=== PATIENT | female | born 1990 | race Caucasian/White ===

== ENCOUNTER 2023-10-30 00:26 | Emergency (ER) | payer SELFPAY ==
[2023-10-30] MEDS: Lidocaine 2% with EPINEPHrine 1:200,000 20 ML SDV INJECT ONE (00:43)
[2023-10-30] MEDS: Lidocaine 1% with EPINEPHrine 1:100,000 50 ML MDV INJECT STA (00:43)
[2023-10-30] MEDS: Lidocaine 1% with EPINEPHrine 1:200,000 30 ML SDV INJECT ONE (00:43)
[2023-10-30] MEDS: Ibuprofen 600 MG Tab PO ONE (01:09)
[2023-10-30] MEDS: Acetaminophen 500 MG Tab PO ONE (01:09)
[2023-10-30] MEDS: Ondansetron 4 MG Tab.DIS PO ONE (01:09)
[2023-10-30] MEDS: Doxycycline 100 MG Cap PO ONE (01:10)
== END 2023-10-30 01:19 | disposition home or self-care (01) ==
LOC: MW.ED 00:26
DX: L02.213 Cutaneous abscess of chest wall (principal); Z79.899 Other long term (current) drug therapy; Z90.49 Acquired absence of other specified parts of digestive tract; Z75.8 Other problems related to medical facilities and other health care
CPT/HCPCS: 10060; 82947; 99283; A9270; J3490

== ENCOUNTER 2024-03-20 18:38 | Emergency (ER) | payer SELFPAY ==
[2024-03-20 19:55] LABS: BASOPHILS ABSOLUTE AUTO 0.04 K/uL (0.00-0.20); BASOPHILS PERCENT AUTO 0.3 % (0.0-1.0); EOSINOPHILS ABSOLUTE AUTO 0.02 K/uL (0.00-0.45); EOSINOPHILS PERCENT AUTO 0.2 % (0.0-6.0); HEMATOCRIT 42.2 % (37.0-47.0); HEMOGLOBIN 13.7 g/dL (12.0-16.0); IMMATURE GRAN PERCENT AUTO 0.9 % (0.0-0.4); LYMPHOCYTES ABSOLUTE AUTO 1.78 K/uL (1.00-4.80); LYMPHOCYTES PERCENT AUTO 15.4 % (24.0-44.0); MEAN CORPUSCULAR HEMOGLOBIN 27.7 pg (28.0-32.0); MEAN CORPUSCULAR HGB CONC 32.5 g/dL (32.0-36.0); MEAN CORPUSCULAR VOLUME 85.3 fL (83.0-99.0); MEAN PLATELET VOLUME 10.5 fL (9.4-12.3); MONOCYTES PERCENT AUTO 1.7 % (0.0-8.0); NEUTROPHILS ABSOLUTE AUTO 9.39 K/uL (1.80-7.70); NEUTROPHILS PERCENT AUTO 81.5 % (41.0-71.0); PLATELET COUNT,PLT 263 K/uL (150-400); RED BLOOD CELL COUNT 4.95 M/uL (4.10-5.30); WHITE BLOOD CELL COUNT,WBC 11.53 K/uL (3.9-11.3)
[2024-03-20 20:01] LABS: APPEARANCE,URINE CLEAR; BILIRUBIN,URINE NEGATIVE (NEGATIVE); COLOR,URINE YELLOW; GLUCOSE,URINE NEGATIVE (NEGATIVE); KETONES,URINE NEGATIVE (NEGATIVE); LEUKOCYTE ESTERASE,URINE NEGATIVE (NEGATIVE); NITRITE,URINE NEGATIVE (NEGATIVE); OCCULT BLOOD,URINE NEGATIVE (NEGATIVE); PROTEIN,URINE NEGATIVE (NEGATIVE); UROBILINOGEN,URINE 0.2 EU/dL (<2.0)
[2024-03-20 20:15] LABS: A/G RATIO 0.9 (0.9-1.6); ALBUMIN 3.8 g/dL (3.4-5.0); BILIRUBIN TOTAL 0.5 mg/dL (0.2-1.0); CARBON DIOXIDE,CO2 27.9 mmol/L (21.0-32.0); CREATININE 1.1 mg/dL (0.6-1.0); EST CRCL DRUG DOSING (CG) 74.6 mL/min; POTASSIUM,K 4.4 mmol/L (3.5-5.1); PROTEIN TOTAL,TP 8.1 g/dL (6.4-8.2)
[2024-03-20] MEDS: Lidocaine 4% 1 each Patch TOP STA (20:29)
[2024-03-20] MEDS: Sodium Chloride 0.9% 1,000 ML IV ONE (20:29)
[2024-03-20] MEDS: Acetaminophen 500 MG Tab PO ONE (20:29)
[2024-03-20] MEDS: Iopamidol 755 MG/ML 500 ML Multipack Bottle IVPUSH ONE (21:17)
== END 2024-03-20 22:33 | disposition home or self-care (01) ==
LOC: MW.ED 18:38
DX: R10.12 Left upper quadrant pain (principal); Z75.3 Unavailability and inaccessibility of health-care facilities; Z79.899 Other long term (current) drug therapy; Z90.49 Acquired absence of other specified parts of digestive tract
CPT/HCPCS: 36415; 74177; 80053; 81003; 81025; 83690; 85025; 96360; 99284; A9270; J7030; Q9967

== ENCOUNTER 2024-06-06 14:49 | Emergency (ER) | payer BC, OTHER ==
[2024-06-06] MEDS: Sodium Chloride 0.9% 1,000 ML IV ONE (15:36)
[2024-06-06] MEDS: Ketorolac 30 MG/ML SDV IVPUSH ONE (15:41)
[2024-06-06] MEDS: diphenhydrAMINE 50 MG/ML SDV IVPUSH ONE (15:41)
[2024-06-06] MEDS: Ondansetron 4 MG/2 ML SDV IVPUSH ONE (15:41)
[2024-06-06] MEDS: Metoclopramide 10 MG/2 ML SDV IVPUSH ONE (15:43)
== END 2024-06-06 18:02 | disposition home or self-care (01) ==
LOC: MW.ED 14:49
DX: G43.909 Migraine, unspecified, not intractable, without status migrainosus (principal); Z90.49 Acquired absence of other specified parts of digestive tract; Z75.8 Other problems related to medical facilities and other health care
CPT/HCPCS: 70450; 96361; 96374; 96375; 99284; J1200; J1885; J2405; J2765; J7030; 99283

== ENCOUNTER 2024-07-27 18:22 | Emergency (ER) | payer BC ==
[2024-07-27] MEDS: Lidocaine 4% 1 each Patch TOP STA (21:57)
[2024-07-27] MEDS: Ketorolac 30 MG/ML SDV IM ONE (21:57)
[2024-07-27] MEDS: Orphenadrine 60 MG/2 ML Inj IM ONE (21:58)
== END 2024-07-28 00:26 | disposition home or self-care (01) ==
LOC: MW.ED 18:22
DX: M54.9 Dorsalgia, unspecified (principal); Z90.49 Acquired absence of other specified parts of digestive tract; Z79.899 Other long term (current) drug therapy; Z75.8 Other problems related to medical facilities and other health care
CPT/HCPCS: 72100; 96372; 99283; A9270; J1885; J2360

== ENCOUNTER 2025-02-15 09:43 | Emergency (ER) | payer BC ==
[2025-02-15] MEDS ORDERED: Sodium Chloride 0.9% 10 ML Syringe FLUSH PRN (12:30)
[2025-02-15] MEDS ORDERED: Sodium Chloride 0.9% 2.5 ML Syringe FLUSH PRN (12:30)
[2025-02-15 12:44] LABS: APPEARANCE,URINE CLEAR; GLUCOSE,URINE NEGATIVE (NEGATIVE); OCCULT BLOOD,URINE NEGATIVE (NEGATIVE)
[2025-02-15 13:05] LABS: BASOPHILS ABSOLUTE AUTO 0.05 K/uL (0.00-0.20); BASOPHILS PERCENT AUTO 0.5 % (0.0-1.0); EOSINOPHILS ABSOLUTE AUTO 0.08 K/uL (0.00-0.45); EOSINOPHILS PERCENT AUTO 0.7 % (0.0-6.0); IMMATURE GRAN ABSOLUTE AUTO 0.07 K/uL (0.00-0.05); IMMATURE GRAN PERCENT AUTO 0.6 % (0.0-0.4); LYMPHOCYTES ABSOLUTE AUTO 3.33 K/uL (1.00-4.80); LYMPHOCYTES PERCENT AUTO 30.2 % (24.0-44.0); MEAN PLATELET VOLUME 10.4 fL (9.4-12.3); MONOCYTES ABSOLUTE AUTO 0.50 K/uL (0.00-0.80); MONOCYTES PERCENT AUTO 4.5 % (0.0-8.0); NEUTROPHILS ABSOLUTE AUTO 7.01 K/uL (1.80-7.70); NEUTROPHILS PERCENT AUTO 63.5 % (41.0-71.0); NRBC ABSOLUTE 0.00 K/uL (0.00-0.02); NRBC PERCENT 0.0 /100WBC (0.0-0.2); PLATELET COUNT,PLT 249 K/uL (150-400); RED BLOOD CELL COUNT 4.96 M/uL (4.10-5.30); WHITE BLOOD CELL COUNT,WBC 11.04 K/uL (3.9-11.3)
[2025-02-15 13:28] LABS: EPITHELIAL CELLS,URINE OCCASIONAL (NONE-FEW)
[2025-02-15 13:32] LABS: A/G RATIO 0.9 (0.9-1.6); ALANINE AMINOTRANSFERASE,ALT 37.0 IU/L (14-63); ASPARTATE AMNIOTRANSFERASE,AST 16.0 IU/L (15-37); BILIRUBIN TOTAL 0.5 mg/dL (0.2-1.0); BLOOD UREA NITROGEN,BUN 12.0 mg/dL (7.0-18.0); CREATININE 1.0 mg/dL (0.6-1.0); EST CRCL DRUG DOSING (CG) 81.28 mL/min; GLUCOSE RANDOM 134.0 mg/dL (74-106); PROTEIN TOTAL,TP 7.5 g/dL (6.4-8.2)
[2025-02-15 13:38] LABS: CARBON DIOXIDE,CO2 29.9 mmol/L (21.0-32.0); CHLORIDE,CL 100.0 mmol/L (98-107); POTASSIUM,K 4.5 mmol/L (3.5-5.1); SODIUM,NA 136.0 mmol/L (136-145)
[2025-02-15 13:40] LABS: ESTIMATED GFR 75.0 mL/min (>60)
[2025-02-15] MEDS: Iopamidol 755 MG/ML 500 ML Multipack Bottle IVPUSH STA (17:05)
== END 2025-02-15 17:32 | disposition left against medical advice (07) ==
LOC: MW.ED 09:43
DX: R10.31 Right lower quadrant pain (principal); R10.32 Left lower quadrant pain; Z79.899 Other long term (current) drug therapy; Z90.49 Acquired absence of other specified parts of digestive tract
CPT/HCPCS: 36415; 74177; 76856; 80053; 81001; 81025; 83605; 83690; 83735; 84703; 85025; 87086; 96374; 99284; J2765; Q9967; 99283

== ENCOUNTER 2025-07-13 04:30 | Emergency (ER) | payer SELFPAY ==
[2025-07-13] MEDS ORDERED: Sodium Chloride 0.9% 2.5 ML Syringe FLUSH PRN (04:46)
[2025-07-13] MEDS ORDERED: Sodium Chloride 0.9% 10 ML Syringe FLUSH PRN (04:46)
[2025-07-13 05:09] LABS: BASOPHILS ABSOLUTE AUTO 0.05 K/uL (0.00-0.20); BASOPHILS PERCENT AUTO 0.6 % (0.0-1.0); EOSINOPHILS ABSOLUTE AUTO 0.01 K/uL (0.00-0.45); EOSINOPHILS PERCENT AUTO 0.1 % (0.0-6.0); IMMATURE GRAN ABSOLUTE AUTO 0.07 K/uL (0.00-0.05); IMMATURE GRAN PERCENT AUTO 0.8 % (0.0-0.4); LYMPHOCYTES ABSOLUTE AUTO 2.12 K/uL (1.00-4.80); LYMPHOCYTES PERCENT AUTO 25.2 % (24.0-44.0); MEAN PLATELET VOLUME 10.8 fL (9.4-12.3); MONOCYTES ABSOLUTE AUTO 0.97 K/uL (0.00-0.80); MONOCYTES PERCENT AUTO 11.5 % (0.0-8.0); NEUTROPHILS ABSOLUTE AUTO 5.20 K/uL (1.80-7.70); NEUTROPHILS PERCENT AUTO 61.8 % (41.0-71.0); NRBC ABSOLUTE 0.00 K/uL (0.00-0.02); NRBC PERCENT 0.0 /100WBC (0.0-0.2); PLATELET COUNT,PLT 254 K/uL (150-400); RED BLOOD CELL COUNT 5.23 M/uL (4.10-5.30); WHITE BLOOD CELL COUNT,WBC 8.42 K/uL (3.9-11.3)
[2025-07-13] MEDS: Ondansetron 4 MG/2 ML SDV IVPUSH ONE (05:17)
[2025-07-13] MEDS: Ketorolac 30 MG/ML SDV IVPUSH ONE (05:17)
[2025-07-13] MEDS: cefTRIAXone 2 GM in Water For Injection, Sterile 20 ML IVPUSH ONE (05:34)
[2025-07-13 06:00] LABS: A/G RATIO 0.8 (0.9-1.6); ALANINE AMINOTRANSFERASE,ALT 19.0 IU/L (14-63); ASPARTATE AMNIOTRANSFERASE,AST 16.0 IU/L (15-37); BILIRUBIN TOTAL 0.7 mg/dL (0.2-1.0); BLOOD UREA NITROGEN,BUN 13.0 mg/dL (7.0-18.0); CARBON DIOXIDE,CO2 26.3 mmol/L (21.0-32.0); CHLORIDE,CL 100.0 mmol/L (98-107); CREATININE 1.2 mg/dL (0.6-1.0); EST CRCL DRUG DOSING (CG) 67.73 mL/min; GLUCOSE RANDOM 162.0 mg/dL (74-106); POTASSIUM,K 4.0 mmol/L (3.5-5.1); PROTEIN TOTAL,TP 8.1 g/dL (6.4-8.2); SODIUM,NA 137.0 mmol/L (136-145)
[2025-07-13 06:05] LABS: LACTIC ACID 1.0 mmol/L (0.4-2.0)
[2025-07-13 06:06] LABS: ESTIMATED GFR 60.0 mL/min (>60)
== END 2025-07-13 07:15 | disposition home or self-care (01) ==
LOC: MW.ED 04:30
DX: J10.1 Influenza due to other identified influenza virus with other respiratory manifestations (principal); Z91.041 Radiographic dye allergy status
CPT/HCPCS: 36415; 71046; 80053; 83605; 84703; 85025; 87040; 87428; 87651; 96361; 96374; 96375; 99284; A4216; A9270; J0696; J1885; J2405; J7030